=== PATIENT | male | born 2000 | race Hispanic/Latino ===

== ENCOUNTER 2022-12-16 10:37 | Emergency (ER) | payer OTHER, SELFPAY ==
--- OUTSIDE RECORDS SUMMARY | 2022-12-16 10:40 | XMS REPORT | Continuity of Care Document ---
:2000 Author Organization [facility] t Address [address] [place] [address] Care Team Providers Name Role Phone PCP, PATIENT DOES NOT HAVE A Primary Care Physician Unavaila ble CARYL HUTCHINSON Attending Clinician Unavailable Caryl Hutchinson DO Attending Clinician CARYL HUTCHINSON Admitting Clinician Unavailable Problems Condition Condition Condition Status Onset Resolution Last Treating Co mments Source Name Details Category Date Date Treatment Clinician Date No known No known Disease Unive rs active active ity of problems problems [facility] Allergies, Adverse Reactions, Alerts Allergy Allergy Status Severity Reaction(s) Onset Inactive Treating Comm ents Source Name Type Date Date Clinician NO KNOWN Drug Active Univers ALLERGIE Class ity of S [facility] Social History Social Habit Start Date Stop Date Quantity Comments Source Exposure to 2022-09-04 2022-09-14 Not sure [facility] SARS-CoV-2 (event) 00:00:00 18:10:00 Medica l Branch Sex Assigned At [address] [facility] 00:00:00 00:00:00 Medical Branch Smoking Status Start Date Stop Date Source Tobacco smoking consumption [facility] unknown Branch Medications Ordered Filled Start Stop Current Ordering Indication Dosage Frequency Signature Comments Components Source Medication Medication Date Date Medication? Clinician (SIG) Name Name No known 2021-10 No No known Unive rs medications 1-20 medication it y of :17: s [address] Vital Signs Vital Name Observation Time Observation Value Comments Source Systolic blood 2022-09-15 00:11:00 124 mm[Hg] Univer sity of pressure [facility] Diastolic blood 2022-09-15 00:11:00 90 mm[Hg] Unive rsity of pressure [facility] Heart rate 2022-09-15 00:11:00 92 /min [facility] Body temperature 2022-09-15 00:11:00 37.39 [facility] Respiratory rate 2022-09-15 00:11:00 16 /min [facility] Oxygen saturation in 2022-09-15 00:11:00 98 /min [facility] Arterial blood by [facility] Pulse oximetry Branch Procedures Procedure Date / Time Performed Performing Clinician Sourc e XR SHOULDER <2 VW 2022-09-15 00:27:07 [facility] OF PRIVACY 2022-09-15 00:02:46 Doctor Unassigned, No [facility] PRACTICES Name Medical Branch Encounters Start End Encounter Admission Attending Care Care Encounter Source Date/Time Date/Time Type Type Clinicians Facility Department ID 2022-09-14 2022-09-14 Emergency X DEBBIE HUTCHINSON ERT [id number] [facility] 18:14:00 19:11:00 CARYL [place] [facility] 2022-09-14 2022-09-14 Emergency DEBBIE Hutchinson [id number] Univers 18:14:00 19:11:00 Caryl OLEA [id number] ity [facility] [id number] [facility] [id number] [facility] 084 Branch Results This patient has no known results.
[2022-12-16 11:24] LABS: Urine Blood 3+ (Negative); Urine Glucose Negative (Negative); Urine Protein Negative (Negative); Urine Specific Gravity 1.015 (1.005-1.030); Urine pH 8.5 (5.0-7.0)
--- NOTE | 2022-12-16 12:14 | RAD REPORT ---
EXAM DESCRIPTION: US - Scrotum Testicles - 12/16/2022 11:16 am CLINICAL HISTORY: hematuria, minor testicular trauma COMPARISON: No comparisons FINDINGS: The right testicle 4.2 x 3.1 x 2.3 cm. No intratesticular masses or evidence of testicular torsion. The left testicle 4.0 x 3.0 x 2.0 cm. No intratesticular masses or evidence of testicular torsion. Both epididymides are normal in size and appearance. No pathologic fluid collections. IMPRESSION: No acute abnormality detected.
--- NOTE | 2022-12-16 12:23 | ER ---
Nurse's Notes [facility] Name: Manuel Almanza Age: 22 yrs Sex: Male : 2000 Arrival Date: 12/16/2022 Time: 10:38 Bed 19 Private MD: Diagnosis: Hematuria, unspecified Presentation: 12/16 10:55 Chief complaint: Patient states: he was intimate with his girlfriend last night and had ap3 blood in his ejaculate, with minimal blood in his urine this morning. patient denies pain this morning. Coronavirus screen: At this time, the client does not indicate any symptoms associated with coronavirus-19. Ebola Screen: No symptoms or risks identified at this time. Initial Sepsis Screen: Does the patient meet any 2 criteria? No. Patient's initial sepsis screen is negative. Does the patient have a suspected source of infection? No. Patient's initial sepsis screen is negative. Risk Assessment: Do you want to hurt yourself or someone else? Patient reports no desire to harm self or others. Onset of symptoms was December 15, 2022. 10:55 Method Of Arrival: Ambulatory ap3 10:55 Acuity: ISIDRA 3 ap3 Triage Assessment: 10:56 General: Appears in no apparent distress. Behavior is calm, cooperative, appropriate ap3 for age. Pain: Denies pain. Neuro: Level of Consciousness is awake, alert, obeys commands, Oriented to person, place, time, situation, Gait is steady. Cardiovascular: Patient's skin is warm and dry. Respiratory: Airway is patent Respiratory effort is even, unlabored, Respiratory pattern is regular, symmetrical. : Reports discharge, bloody, blood in ejaculate and blood in urine. Historical: - Allergies: 10:56 No Known Allergies; ap3 - Home Meds: 10:56 None [Active]; ap3 - PMHx: 10:56 None; ap3 - Immunization history:: Client reports having NOT received the Covid vaccine. - Social history:: Smoking status: Patient reports the use of cigarette tobacco products, denies chronic smoking, but will smoke occasionally, Patient uses alcohol, occasionally. - Family history:: not pertinent. - Hospitalizations: : No recent hospitalization is reported. Screenin:57 [facility] ED Fall Risk Assessment (Adult) History of falling in the last 3 months, ap3 including since admission No falls in past 3 months (0 pts). Abuse screen: Denies threats or abuse. Nutritional screening: No deficits noted. Tuberculosis screening: No symptoms or risk factors identified. Vital Signs: 10:55 BP 136 / 80; Pulse 76; Resp 17; Temp 98.7; Pulse Ox 100% ; Weight 83.91 kg; Height 5 ap3 ft. 7 in. (170.18 cm); Pain 0/10; 11:44 Pulse 86; Pulse Ox 98% on R/A; ap3 10:55 Body Mass Index 28.97 (83.91 kg, 170.18 cm) ap3 ED Course: 10:38 Patient arrived in ED. mr 10:39 Rk Mendieta MD is Attending Physician. rn 10:54 Maeve Tran RN is Primary Nurse. ap3 10:56 Triage completed. ap3 10:57 Arm band placed on right wrist. ap3 10:57 Patient has correct armband on for positive identification. Placed in gown. Bed in low ap3 position. Call light in reach. Adult w/ patient. Pulse ox on. NIBP on. Door closed. Noise minimized. 12:22 Mario Brito MD is Referral Physician. rn Administered Medications: No medications were administered Medication: 10:58 VIS not applicable for this client. ap3 Outcome: 12:22 Discharge ordered by . rn 12:36 Patient left the ED. aa5 Signatures: Charla Peng mr Rk Mendieta MD MD rn Calderon, Audri, RN RN aa5 Meave Tran RN RN ap3
--- NOTE | 2022-12-16 12:24 | EDPHYS ---
Physician Documentation [facility] Name: Manuel Almanza Age: 22 yrs Sex: Male : 2000 Arrival Date: 12/16/2022 Time: 10:38 Bed 19 Private MD: ED Physician Rk Mendieta HPI: 12/16 10:56 This 22 yrs old Male presents to ER via Ambulatory with complaints of Blood in rn urine. 10:56 The patient presents with urinary symptoms, hematuria. Onset: The symptoms/episode rn began/occurred last night. Modifying factors: The symptoms are alleviated by nothing, the symptoms are aggravated by urinating, sexual intercourse. Associated signs and symptoms: Pertinent positives: hematuria, Pertinent negatives: abdominal pain, dysuria, fever, nausea, vomiting. Severity of symptoms: At their worst the symptoms were mild, in the emergency department the symptoms have improved. The patient has not experienced similar symptoms in the past. The patient has not recently seen a physician. 11:44 Pt reports during sex, partner squeezed his testicles with a good amount of pressure, rn now has painless hematuria, small amount, either when starts stream and clears, or when ends stream. NO testicle or penile pain or swelling/deformity. . Historical: - Allergies: 10:56 No Known Allergies; ap3 - Home Meds: 10:56 None [Active]; ap3 - PMHx: 10:56 None; ap3 - Immunization history:: Client reports having NOT received the Covid vaccine. - Social history:: Smoking status: Patient reports the use of cigarette tobacco products, denies chronic smoking, but will smoke occasionally, Patient uses alcohol, occasionally. - Family history:: not pertinent. - Hospitalizations: : No recent hospitalization is reported. ROS: 10:56 Constitutional: Negative for fever, chills, and weight loss, Eyes: Negative for injury, rn pain, redness, and discharge, Cardiovascular: Negative for chest pain, palpitations, and edema, Respiratory: Negative for shortness of breath, cough, wheezing, and pleuritic chest pain, Abdomen/GI: Negative for abdominal pain, nausea, vomiting, diarrhea, and constipation, : + hematuria, negative for testicular pain or swelling, no penile pain or swelling, no injury to shaft of penis Exam: 10:56 Constitutional: This is a well developed, well nourished patient who is awake, alert, rn and in no acute distress. Cardiovascular: Regular rate and rhythm. No pulse deficits. Respiratory: No increased work of breathing, no retractions or nasal flaring. Abdomen/GI: Soft, non-tender Skin: Warm, dry Vital Signs: 10:55 BP 136 / 80; Pulse 76; Resp 17; Temp 98.7; Pulse Ox 100% ; Weight 83.91 kg; Height 5 ap3 ft. 7 in. (170.18 cm); Pain 0/10; 11:44 Pulse 86; Pulse Ox 98% on R/A; ap3 10:55 Body Mass Index 28.97 (83.91 kg, 170.18 cm) ap3 MDM: 10:39 Patient medically screened. rn 12:20 Differential diagnosis: UTI, prostatitis, urethritis, urethral injury, testicular rn injury, hematoma. Data reviewed: vital signs, nurses notes, lab test result(s), radiologic studies, ultrasound, and as a result, I will discharge patient. Counseling: I had a detailed discussion with the patient and/or guardian regarding: the historical points, exam findings, and any diagnostic results supporting the discharge/admit diagnosis, lab results, radiology results, the need for outpatient follow up, to return to the emergency department if symptoms worsen or persist or if there are any questions or concerns that arise at home. Special discussion: I discussed with the patient/guardian in detail that at this point there is no indication for admission to the hospital. It is understood, however, that if the symptoms persist or worsen the patient needs to return immediately for re-evaluation. Based on the history and exam findings, there is no indication for further emergent testing or inpatient evaluation. I discussed with the patient/guardian the need to see the urologist for further evaluation of the symptoms. ED course: U/S neg for acute trauma or testicular abnormality, no masses, no hematoma, neg for torsion. UA shows blood, patient reports not gross hematuria. WIll dc home with abx and urology f/u. Return precautions given and understood.. 12/16 10:41 Order name: Urine Microscopic Only rn 12/16 11:24 Order name: Urine Dipstick-Ancillary; Complete Time: 11:38 EDMS 12/16 10:41 Order name: Urine Dipstick-Ancillary (obtain specimen); Complete Time: 11:23 rn 12/16 10:54 Order name: US Scrotum Testicles rn 12/16 12:15 Order name: US; Complete Time: 12:20 EDMS Administered Medications: No medications were administered Disposition Summary: 12/16/22 12:22 Discharge Ordered Location: Home rn Problem: new rn Symptoms: have improved rn Condition: Stable rn Diagnosis - Hematuria, unspecified rn Followup: rn - With: Mario Brito MD - When: As needed - Reason: Recheck today's complaints, Re-evaluation by your physician Discharge Instructions: - Discharge Summary Sheet rn - Hematuria, Adult rn Forms: - Medication Reconciliation Form rn - Thank You Letter rn - Antibiotic rn hospice - Prescription Opioid Use rn Prescriptions: - Cipro 500 mg Oral Tablet - take 1 tablet by ORAL route every 12 hours for 10 days; 20 tablet; Refills: 0, rn Product Selection Permitted Signatures: Dispatcher [employer] EDMS Rk Mendieta MD MD rn Maeve Tran RN RN ap3
[2022-12-16 12:45] VITALS: BP 136/80; TEMP 98.7; O2SAT 100
== END 2022-12-16 12:36 | disposition home or self-care (01) ==
LOC: ER 10:37
DX: R31.9 Hematuria, unspecified (principal); F17.210 Nicotine dependence, cigarettes, uncomplicated
CPT/HCPCS: 76870; 81003